=== PATIENT | female | born 1940 | race Caucasian/White ===

== ENCOUNTER → 2016-10-15 | Outpatient (CLI) | payer MEDICARE, MEDICAID | END | disposition home or self-care (01) | LOC: MAMMO 09:18 | PROVIDERS: ATTEND Family Medicine | DX: Z12.31 Encounter for screening mammogram for malignant neoplasm of breast (principal) | CPT/HCPCS: G0202 ==

== ENCOUNTER → 2017-10-18 | Outpatient (CLI) | payer MEDICARE, MEDICAID | END | disposition home or self-care (01) | LOC: MAMMO 09:28 | PROVIDERS: ATTEND Family Medicine | DX: Z12.31 Encounter for screening mammogram for malignant neoplasm of breast (principal) | CPT/HCPCS: 77067 ==

== ENCOUNTER → 2018-10-18 | Outpatient (CLI) | payer MEDICARE, MEDICAID | END | disposition home or self-care (01) | LOC: MAMMO 13:06 | PROVIDERS: ATTEND Family Medicine | DX: Z12.31 Encounter for screening mammogram for malignant neoplasm of breast (principal); M19.012 Primary osteoarthritis, left shoulder; M17.11 Unilateral primary osteoarthritis, right knee | CPT/HCPCS: 73030; 73560; 77067 ==

== ENCOUNTER → 2018-11-14 | Outpatient (CLI) | payer MEDICARE, MEDICAID | END | disposition home or self-care (01) | LOC: MAMMO 14:08 | PROVIDERS: ATTEND Family Medicine | DX: N63.11 Unspecified lump in the right breast, upper outer quadrant (principal); R92.1 Mammographic calcification found on diagnostic imaging of breast | CPT/HCPCS: 76642; 77066 ==

== ENCOUNTER 2020-11-03 01:54 | Inpatient (IN) | payer MEDICARE, MEDICAID ==
[~2020-11-03] VITALS: Ht 160 cm; Wt 71.2 kg
[2020-11-03] VITALS (12 sets, daily range): BP systolic 89–129; BP diastolic 38–59
[2020-11-03] MEDS ORDERED: ONDANSETRON HCL 4MG/2ML INJ IV STA (02:40)
[2020-11-03] MEDS ORDERED: MORPHINE SULFATE 4 MG/ML CPJ (NOT FOR IM USE) IV STA (02:40)
[2020-11-03] MEDS ORDERED: SODIUM CHLORIDE 0.9% 1,000 ML IV ONE (02:45)
[2020-11-03] MEDS ORDERED: LIDOCAINE HCL 1% 20ML VIAL (Pyxis) INJ INFIL ONE (02:45)
[2020-11-03] MEDS ORDERED: BACITRACIN ZINC OINT UDPKT TOP ONE (02:45)
[2020-11-03] MEDS ORDERED: TETANUS, DIPHTHERIA, PERTUSSIS VAC/PF 0.5ML (>7YR OLD) IM ONE (02:45)
[2020-11-03 03:08] LABS: CHLORIDE 100 mEq/L (98-107)
[2020-11-03 03:46] LABS: BASOPHILS % 0.5 % (0.0-2.0); EOSINOPHILS % 1.4 % (0.0-5.0); HEMATOCRIT. 31.5 % (36.0-48.0); HEMOGLOBIN. 10.8 g/dL (12.0-16.0); LYMPHOCYTES % 14.3 % (20.0-50.0); MEAN CORPUSCULAR VOLUME 84.8 fL (81.0-99.0); MEAN PLATELET VOLUME 7.5 fl (7.4-10.4); MONOCYTES % 6.8 % (2.0-8.0); PLATELET 402 x1000/uL (130-400); RED BLOOD CELL COUNT 3.72 mill/uL (4.2-5.4)
[2020-11-03 03:47] LABS: CLARITY URINE CLEAR (CLEAR); COLOR URINE YELLOW (YELLOW); KETONES URINE NEGATIVE (NEGATIVE); LEUKOCYTE ESTERASE URINE NEGATIVE (NEGATIVE); NITRITE URINE NEGATIVE (NEGATIVE); OCCULT BLOOD URINE NEGATIVE (NEGATIVE); PROTEIN URINE NEGATIVE (NEGATIVE); SPECIFIC GRAVITY URINE 1.007 (1.005-1.030); UROBILINOGEN URINE 0.2 E.U./dL (0.2-1.0)
[2020-11-03] MEDS ORDERED: IPRATROPIUM/ALBUTEROL 0.5-3(2.5)MG/3ML NEB HHN PRN (06:15)
[2020-11-03] MEDS ORDERED: ONDANSETRON HCL 4MG/2ML INJ IV PRN (06:15)
[2020-11-03] MEDS ORDERED: LORAZEPAM 2MG/ML CPJ IV PRN (06:15)
[2020-11-03] MEDS ORDERED: GUAIFENESIN 200MG/10ML SUGAR FREE UDC PO PRN (06:15)
[2020-11-03] MEDS ORDERED: MAGNESIUM/ALUMINUM HYDROXIDE/SIMETHICONE 30ML UDC PO PRN (06:15)
[2020-11-03] MEDS ORDERED: HYDRALAZINE 20MG/ML VIAL IV PRN (06:15)
[2020-11-03] MEDS ORDERED: MORPHINE SULFATE 2 MG/ML CPJ (NOT FOR IM USE) IV PRN (06:15)
[2020-11-03] MEDS ORDERED: ACETAMINOPHEN 325MG TABLET PO PRN (06:15)
[2020-11-03] MEDS ORDERED: DOCUSATE SODIUM 100MG CAPSULE PO PRN (06:15)
[2020-11-03] MEDS ORDERED: DIPHENHYDRAMINE 50MG/ML VIAL IV PRN (06:15)
[2020-11-03] MEDS ORDERED: HYDROCODONE/ACETAMINOPHEN 5/325MG TABLET PO PRN (06:15)
[2020-11-03] MEDS ORDERED: NALOXONE HCL 0.4MG/ML VIAL IV PRN (06:30)
[2020-11-03 11:31] LABS: T4 FREE 1.29 ng/dL (0.76-1.46)
[2020-11-03 13:27] LABS: PROTHROMBIN TIME 10.8 sec (9.6-11.0)
[2020-11-03] MEDS ORDERED: SODIUM CHLORIDE 0.9% INJ 3ML FLUSH IVF SCH (14:00)
[2020-11-03] MEDS ORDERED: BACITRACIN 50,000 UNITS/VIAL ONE (16:45)
[2020-11-03] MEDS ORDERED: THROMBIN (BOVINE) 5000 UNITS/VIAL TOP ONE ×3 (16:45→21:09)
[2020-11-03] MEDS ORDERED: SODIUM CHLORIDE 0.9% 500 ML IV ONE (16:45)
[2020-11-03] MEDS ORDERED: LIDOCAINE HCL/EPINEPHRINE 1%-EPI 1:100,000 10 ML VIAL ONE ×2 (16:46→17:07)
[2020-11-03] MEDS ORDERED: POTASSIUM CHLORIDE INJ 40 MEQ in DEXT 5% WATER 250 ML IV NR (17:30)
[2020-11-03] MEDS ORDERED: ROCURONIUM BROMIDE 10MG/ML VIAL 5ML IV ONE (18:13)
[2020-11-03] MEDS ORDERED: DEXAMETHASONE 4MG/ML 1ML VIAL ONE (18:15)
[2020-11-03] MEDS ORDERED: CALCIUM CHLORIDE 1GM/10ML SYR IV ONE (18:26)
[2020-11-03] MEDS ORDERED: ALBUMIN HUMAN 25GM/100ML (25%) IV ONE ×2 (18:39→19:16)
[2020-11-03] MEDS ORDERED: KCL 20MEQ/100ML PREMIX 200 ML IV ONE (18:41)
[2020-11-03] MEDS ORDERED: HYDROMORPHONE HCL/PF 2MG/ML (OR) ONE (18:53)
[2020-11-03] MEDS ORDERED: LABETALOL HCL 5MG/ML VIAL 20ML IV ONE (19:10)
[2020-11-03] MEDS ORDERED: HYDRALAZINE 20MG/ML VIAL ONE (19:10)
[2020-11-03] MEDS ORDERED: CEFAZOLIN SODIUM 1000MG/VIAL ONE (19:47)
[2020-11-03] MEDS ORDERED: VASOPRESSIN 20 UNIT/ML 1ML ONE (21:26)
[2020-11-03] MEDS ORDERED: CEFAZOLIN SODIUM 1000MG/VIAL IV SCH (22:00)
[2020-11-03] MEDS ORDERED: NOREPINEPHRINE 8MG/250ML PMX 250 ML IV PRN (22:15)
[2020-11-03] MEDS ORDERED: NOREPINEPHRINE 8 MG in DEXTROSE 5% WATER 250 ML IV PRN (22:15)
[2020-11-03] MEDS: DEXT 5%/LACTATED RINGERS 1,000 ML IV SCH (22:55)
[2020-11-04] VITALS (99 sets, daily range): BP systolic 1–170; BP diastolic -1–74
[2020-11-04] MEDS ORDERED: PROPOFOL 10MG/ML 100ML 100 ML IV PRN
[2020-11-04] MEDS: DEXAMETHASONE 4MG/ML 1ML VIAL IV SCH ×5 (00:05→17:07)
[2020-11-04 00:29] LABS: BG BASE EXCESS -3.3 mmol/L (-2.0-2.0); BG CARBOXYHEMOGLOBIN 0.2 % (0.5-1.5); BG FRACTION INSPIRED OXYGEN 50; BG HCO3 ACT 20.2 mmol/L (22.0-26.0); BG METHEMOGLOBIN 0.4 % (0.0-1.5); BG OXYHEMOGLOBIN 97.4 % (94.0-97.0); BG PCO2 29.8 mmHg (35.0-45.0); BG PO2 109.2 mmHg (75.0-100.0); BG SAMPLE SITE ALINE; BG TOTAL HEMOGLOBIN 6.7 g/dL (12.0-18.0); BG TOTAL RESPIRATORY RATE 14 b/min; BG VENT MODE VENT - AC
[2020-11-04] MEDS: DEXT 5%/LACTATED RINGERS 1,000 ML IV SCH ×3 (01:00→17:07)
[2020-11-04 01:01] LABS: CREATINE KINASE MB FRACTION 2.8 ng/mL (0.5-3.6)
[2020-11-04] MEDS: CEFAZOLIN 1000MG PREMIX 50 ML IV SCH ×4 (01:36→23:47)
[2020-11-04] MEDS: NICARDIPINE 100 MG in SODIUM CHLORIDE 0.9% 60 ML IV PRN ×2 (01:37→09:22)
[2020-11-04 06:06] LABS: HEMATOCRIT. 21.2 % (36.0-48.0); HEMOGLOBIN. 7.1 g/dL (12.0-16.0); MEAN CORPUSCULAR HEMOGLOBIN 28.5 pg (28.0-32.0); MEAN CORPUSCULAR VOLUME 84.7 fL (81.0-99.0); MEAN PLATELET VOLUME 7.4 fl (7.4-10.4); PLATELET 295 x1000/uL (130-400); RED CELL DISTRIBUTION WIDTH 14.9 % (11.6-14.6)
[2020-11-04 06:09] LABS: CHLORIDE 100 mEq/L (98-107)
[2020-11-04 07:56] LABS: BG BASE EXCESS -1.6 mmol/L (-2.0-2.0); BG CARBOXYHEMOGLOBIN 0.2 % (0.5-1.5); BG DEOXYHEMOGLOBIN 4.7 % (0.0-5.0); BG METHEMOGLOBIN 0.6 % (0.0-1.5); BG OXYGEN SATURATION 95.3 % (92.0-98.5); BG OXYHEMOGLOBIN 94.5 % (94.0-97.0); BG PCO2 37.7 mmHg (35.0-45.0); BG PH 7.403 (7.350-7.450); BG PO2 76.5 mmHg (75.0-100.0); BG SAMPLE SITE ALINE; BG TOTAL HEMOGLOBIN 6.9 g/dL (12.0-18.0); BG VENT MODE VENT - AC
[2020-11-04] MEDS: PANTOPRAZOLE SODIUM 40 MG/VIAL IV SCH (09:57)
[2020-11-04 11:41] LABS: PLATELET ESTIMATE NORMAL
[2020-11-04] MEDS ORDERED: SODIUM BICARBONATE 4% (2.4MEQ) 5ML VIAL IV ONE (13:24)
[2020-11-04] MEDS: MORPHINE SULFATE 4 MG/ML CPJ (NOT FOR IM USE) IV PRN (22:05)
[2020-11-04] MEDS ORDERED: IOHEXOL-350 100 ML BOTTLE ONE (23:03)
[2020-11-04 23:55] LABS: HEMATOCRIT 27.7 % (36.0-48.0); HEMOGLOBIN 9.4 g/dL (12.0-16.0); MEAN CORPUSCULAR HEMOGLOBIN 29.4 pg (28.0-32.0); MEAN CORPUSCULAR VOLUME 86.5 fL (81.0-99.0); PLATELET 254 x1000/uL (130-400); RED CELL DISTRIBUTION WIDTH 15.3 % (11.6-14.6)
[2020-11-05] VITALS (96 sets, daily range): BP systolic 75–142; BP diastolic 49–91
[2020-11-05] MEDS: DEXAMETHASONE 4MG/ML 1ML VIAL IV SCH ×4 (01:29→17:00)
[2020-11-05] MEDS: DEXT 5%/LACTATED RINGERS 1,000 ML IV SCH ×3 (01:31→17:04)
[2020-11-05] MEDS: NICARDIPINE 100 MG in SODIUM CHLORIDE 0.9% 60 ML IV PRN (04:19)
[2020-11-05] MEDS: MORPHINE SULFATE 4 MG/ML CPJ (NOT FOR IM USE) IV PRN ×4 (04:42→20:28)
[2020-11-05] MEDS: CEFAZOLIN 1000MG PREMIX 50 ML IV SCH ×2 (06:00→14:29)
[2020-11-05] MEDS: PANTOPRAZOLE SODIUM 40 MG/VIAL IV SCH (08:19)
[2020-11-05 09:26] LABS: BG BASE EXCESS 1.2 mmol/L (-2.0-2.0); BG CARBOXYHEMOGLOBIN 0.3 % (0.5-1.5); BG DEOXYHEMOGLOBIN 2.1 % (0.0-5.0); BG FRACTION INSPIRED OXYGEN 50; BG HCO3 ACT 25.2 mmol/L (22.0-26.0); BG METHEMOGLOBIN 0.5 % (0.0-1.5); BG OXYGEN SATURATION 97.9 % (92.0-98.5); BG OXYHEMOGLOBIN 97.1 % (94.0-97.0); BG PCO2 37.5 mmHg (35.0-45.0); BG PH 7.445 (7.350-7.450); BG PO2 103.7 mmHg (75.0-100.0); BG SAMPLE SITE RIGHT RADIAL; BG TOTAL HEMOGLOBIN 10.4 g/dL (12.0-18.0); BG VENT MODE VENT - AC
[2020-11-05 10:42] LABS: BG BASE EXCESS 0.4 mmol/L (-2.0-2.0); BG DEOXYHEMOGLOBIN 1.4 % (0.0-5.0); BG FRACTION INSPIRED OXYGEN 50; BG METHEMOGLOBIN 0.5 % (0.0-1.5); BG OXYGEN SATURATION 98.6 % (92.0-98.5); BG OXYHEMOGLOBIN 98.1 % (94.0-97.0); BG PCO2 35.1 mmHg (35.0-45.0); BG PH 7.453 (7.350-7.450); BG PO2 133.3 mmHg (75.0-100.0); BG SAMPLE SITE RIGHT RADIAL; BG TOTAL HEMOGLOBIN 11.4 g/dL (12.0-18.0); BG VENT MODE VENT - CPAP
[2020-11-05] MEDS: PIPERACILLIN/TAZOBACTAM 3.375 G in DEXTROSE 5% WATER 50 ML IV SCH ×2 (11:09→18:36)
[2020-11-05] MEDS ORDERED: DEXTROSE 50% WATER 50ML SYRINGE IV PRN (12:00)
[2020-11-05] MEDS: BLOOD SUGAR DIAGNOSTIC STRIP TEST SCH ×2 (12:15→18:33)
[2020-11-05] MEDS: INSULIN LISPRO 100 UNITS/ML SUBCUT SCH ×2 (13:37→17:03)
[2020-11-06] VITALS (30 sets, daily range): BP systolic 109–154; BP diastolic 54–80
[2020-11-06] MEDS: BLOOD SUGAR DIAGNOSTIC STRIP TEST SCH ×4 (00:08→17:12)
[2020-11-06] MEDS: PIPERACILLIN/TAZOBACTAM 3.375 G in DEXTROSE 5% WATER 50 ML IV SCH ×4 (00:35→17:25)
[2020-11-06] MEDS: DEXT 5%/LACTATED RINGERS 1,000 ML IV SCH ×3 (01:54→16:06)
[2020-11-06] MEDS: INSULIN LISPRO 100 UNITS/ML SUBCUT SCH ×4 (05:58→17:29)
[2020-11-06] MEDS: PANTOPRAZOLE SODIUM 40 MG/VIAL IV SCH (08:11)
[2020-11-06] MEDS: MORPHINE SULFATE 4 MG/ML CPJ (NOT FOR IM USE) IV PRN ×3 (08:12→16:19)
[2020-11-07] VITALS (7 sets, daily range): BP systolic 122–168; BP diastolic 68–83
[2020-11-07] MEDS: PIPERACILLIN/TAZOBACTAM 3.375 G in DEXTROSE 5% WATER 50 ML IV SCH ×5 (00:34→23:34)
[2020-11-07] MEDS: DEXT 5%/LACTATED RINGERS 1,000 ML IV SCH ×4 (00:35→17:00)
[2020-11-07] MEDS: INSULIN LISPRO 100 UNITS/ML SUBCUT SCH ×5 (01:06→23:21)
[2020-11-07] MEDS: BLOOD SUGAR DIAGNOSTIC STRIP TEST SCH ×5 (06:34→23:20)
[2020-11-07] MEDS: PANTOPRAZOLE SODIUM 40 MG/VIAL IV SCH (10:11)
[2020-11-07] MEDS: MORPHINE SULFATE 4 MG/ML CPJ (NOT FOR IM USE) IV PRN ×2 (11:31→19:55)
[2020-11-07] MEDS: CLONIDINE 0.1MG TABLET PO PRN (20:03)
[2020-11-08] VITALS (7 sets, daily range): BP systolic 114–149; BP diastolic 53–75
[2020-11-08] MEDS: DEXT 5%/LACTATED RINGERS 1,000 ML IV SCH ×3 (00:35→17:39)
[2020-11-08] MEDS: PIPERACILLIN/TAZOBACTAM 3.375 G in DEXTROSE 5% WATER 50 ML IV SCH ×4 (05:09→23:28)
[2020-11-08] MEDS: MORPHINE SULFATE 4 MG/ML CPJ (NOT FOR IM USE) IV PRN ×3 (05:09→20:59)
[2020-11-08] MEDS: INSULIN LISPRO 100 UNITS/ML SUBCUT SCH ×3 (05:40→17:38)
[2020-11-08] MEDS: BLOOD SUGAR DIAGNOSTIC STRIP TEST SCH ×3 (05:40→17:39)
[2020-11-08 09:51] LABS: BASOPHILS % 0.2 % (0.0-2.0); EOSINOPHILS % 1.3 % (0.0-5.0); HEMATOCRIT. 31.1 % (36.0-48.0); HEMOGLOBIN. 10.3 g/dL (12.0-16.0); LYMPHOCYTES % 8.5 % (20.0-50.0); MEAN CORPUSCULAR HEMOGLOBIN 29.2 pg (28.0-32.0); MEAN CORPUSCULAR VOLUME 87.9 fL (81.0-99.0); MEAN PLATELET VOLUME 7.1 fl (7.4-10.4); MONOCYTES % 6.3 % (2.0-8.0); NEUTROPHILS % 83.7 % (40.0-76.0); PLATELET 239 x1000/uL (130-400); RED BLOOD CELL COUNT 3.54 mill/uL (4.2-5.4); RED CELL DISTRIBUTION WIDTH 15.7 % (11.6-14.6)
[2020-11-08 09:58] LABS: CHLORIDE 111 mEq/L (98-107)
[2020-11-08] MEDS: PANTOPRAZOLE SODIUM 40 MG/VIAL IV SCH (10:59)
[2020-11-08] MEDS ORDERED: POTASSIUM CHLORIDE INJ 40 MEQ in DEXT 5% WATER 250 ML IV SCH (13:00)
[2020-11-08] MEDS: CLONIDINE 0.1MG TABLET PO PRN (20:10)
[2020-11-09] VITALS (10 sets, daily range): BP systolic 116–197; BP diastolic 44–97
[2020-11-09] MEDS: DEXT 5%/LACTATED RINGERS 1,000 ML IV SCH ×3 (00:26→17:23)
[2020-11-09] MEDS: BLOOD SUGAR DIAGNOSTIC STRIP TEST SCH ×5 (00:26→23:29)
[2020-11-09] MEDS: INSULIN LISPRO 100 UNITS/ML SUBCUT SCH ×5 (05:22→23:29)
[2020-11-09] MEDS: PIPERACILLIN/TAZOBACTAM 3.375 G in DEXTROSE 5% WATER 50 ML IV SCH ×4 (05:23→23:25)
[2020-11-09] MEDS: MORPHINE SULFATE 4 MG/ML CPJ (NOT FOR IM USE) IV PRN ×5 (05:52→22:38)
[2020-11-09 06:49] LABS: BASOPHILS % 0.1 % (0.0-2.0); EOSINOPHILS % 3.6 % (0.0-5.0); HEMOGLOBIN. 10.6 g/dL (12.0-16.0); LYMPHOCYTES % 9.3 % (20.0-50.0); MEAN CORPUSCULAR VOLUME 87.7 fL (81.0-99.0); MONOCYTES % 5.7 % (2.0-8.0); NEUTROPHILS % 81.3 % (40.0-76.0); PLATELET 207 x1000/uL (130-400); RED BLOOD CELL COUNT 3.65 mill/uL (4.2-5.4); RED CELL DISTRIBUTION WIDTH 15.4 % (11.6-14.6)
[2020-11-09 06:51] LABS: CHLORIDE 109 mEq/L (98-107)
[2020-11-09] MEDS: FAMOTIDINE 20MG/2ML VIAL IV SCH (09:42)
[2020-11-09] MEDS: CLONIDINE 0.1MG TABLET PO PRN (15:18)
[2020-11-10] VITALS: BP 107/54
[2020-11-10] MEDS: DEXT 5%/LACTATED RINGERS 1,000 ML IV SCH ×2 (00:45→09:00)
[2020-11-10] MEDS: CLONIDINE 0.1MG TABLET PO PRN (01:16)
[2020-11-10 04:00] VITALS: BP 125/70
[2020-11-10] MEDS: MORPHINE SULFATE 4 MG/ML CPJ (NOT FOR IM USE) IV PRN ×2 (05:24→14:20)
[2020-11-10] MEDS: INSULIN LISPRO 100 UNITS/ML SUBCUT SCH ×2 (06:00→12:00)
[2020-11-10] MEDS: BLOOD SUGAR DIAGNOSTIC STRIP TEST SCH ×2 (06:14→12:00)
[2020-11-10] MEDS: PIPERACILLIN/TAZOBACTAM 3.375 G in DEXTROSE 5% WATER 50 ML IV SCH (06:15)
[2020-11-10] MEDS: FAMOTIDINE 20MG/2ML VIAL IV SCH (09:00)
[2020-11-10] MEDS ORDERED: METOPROLOL TARTRATE 25MG TABLET PO SCH (10:30)
[2020-11-10 18:26] VITALS: BP 147/87
== END 2020-11-10 18:16 | DRG 453 ==
LOC: ER 01:54 → EDBEDREQ 04:29 → EDBEDREQTM 04:29 → ENRESERV 12:14 → 6WST 13:18 → MICUSO 22:00 → 5EST 11-06 06:53
PROVIDERS: ADMIT Internal Medicine; ATTEND Internal Medicine
PROC: 0RG2071 Fusion of 2 or more Cervical Vertebral Joints with Autologous Tissue Substitute, Posterior Approach, Posterior Column, Open Approach (ICD-10-PCS; principal; 2020-11-03)
PROC: 5A1945Z Respiratory Ventilation, 24-96 Consecutive Hours (ICD-10-PCS; 2020-11-03)
PROC: 00NW0ZZ Release Cervical Spinal Cord, Open Approach (ICD-10-PCS; 2020-11-03)
PROC: 0RB30ZZ Excision of Cervical Vertebral Disc, Open Approach (ICD-10-PCS; 2020-11-03)
PROC: 4A11X4G Monitoring of Peripheral Nervous Electrical Activity, Intraoperative, External Approach (ICD-10-PCS; 2020-11-03)
PROC: 0HQ1XZZ Repair Face Skin, External Approach (ICD-10-PCS; 2020-11-03)
PROC: 0RG10A0 Fusion of Cervical Vertebral Joint with Interbody Fusion Device, Anterior Approach, Anterior Column, Open Approach (ICD-10-PCS; 2020-11-03)
PROC: 0W9B3ZZ Drainage of Left Pleural Cavity, Percutaneous Approach (ICD-10-PCS; 2020-11-04)
PROC: 30233N1 Transfusion of Nonautologous Red Blood Cells into Peripheral Vein, Percutaneous Approach (ICD-10-PCS; 2020-11-04)
DX: S12.400A Unspecified displaced fracture of fifth cervical vertebra, initial encounter for closed fracture (principal); G82.50 Quadriplegia, unspecified; G95.20 Unspecified cord compression; G95.89 Other specified diseases of spinal cord; J91.0 Malignant pleural effusion; E46 Unspecified protein-calorie malnutrition; E87.1 Hypo-osmolality and hyponatremia; C16.9 Malignant neoplasm of stomach, unspecified; C34.90 Malignant neoplasm of unspecified part of unspecified bronchus or lung; C78.00 Secondary malignant neoplasm of unspecified lung; C79.51 Secondary malignant neoplasm of bone; M48.02 Spinal stenosis, cervical region; S12.500A Unspecified displaced fracture of sixth cervical vertebra, initial encounter for closed fracture; S12.600A Unspecified displaced fracture of seventh cervical vertebra, initial encounter for closed fracture; F07.81 Postconcussional syndrome; I10 Essential (primary) hypertension; E87.6 Hypokalemia; E78.5 Hyperlipidemia, unspecified; D64.9 Anemia, unspecified; S01.81XA Laceration without foreign body of other part of head, initial encounter; D32.9 Benign neoplasm of meninges, unspecified; Z20.822 Contact with and (suspected) exposure to COVID-19; S14.109A Unspecified injury at unspecified level of cervical spinal cord, initial encounter; W06.XXXA Fall from bed, initial encounter; R93.89 Abnormal findings on diagnostic imaging of other specified body structures; Z82.49 Family history of ischemic heart disease and other diseases of the circulatory system; Z86.73 Personal history of transient ischemic attack (TIA), and cerebral infarction without residual deficits; Z68.27 Body mass index [BMI] 27.0-27.9, adult; Y93.89 Activity, other specified; Y99.8 Other external cause status; Z85.028 Personal history of other malignant neoplasm of stomach; Z95.828 Presence of other vascular implants and grafts; Y92.003 Bedroom of unspecified non-institutional (private) residence as the place of occurrence of the external cause
CPT/HCPCS: 32555; 36415; 36600; 70486; 71045; 71275; 72040; 72141; 72146; 72148; 72170; 76000; 80048; 80053; 80061; 81003; 82040; 82375; 82550; 82553; 82805; 82962; 83036; 83615; 83880; 84439; 84443; 84478; 84484; 85025; 85027; 85379; 86850; 86900; 86920; 87070; 87077; 87186; 87426; 88108; 88305; 88311; 88312; 90715; 92610; 93005; 93306; 93970; 94003; 95863; 95925; 95926; 95928; 95929; 97110; 97162; 97166; 97530; 99291; C1713; C9113; J0360; J0690; J1100; J1170; J1815; J2270; J2405; J2543; J3480; J3490; J7030; J7040; J7050; J7060; J7121; L0172; P9016; P9047; Q9967; C1762

== ENCOUNTER 2020-11-10 18:17 | Inpatient (IN) | payer MEDICARE, MEDICAID ==
[~2020-11-10] VITALS: Ht 160 cm; Wt 77.6 kg
[2020-11-10 18:54] VITALS: BP 157/69
[2020-11-10 19:00] VITALS: BP 157/69
[2020-11-10] MEDS ORDERED: HYDROCODONE/ACETAMINOPHEN 10/325MG TABLET PO PRN (19:00)
[2020-11-10] MEDS ORDERED: MAGNESIUM/ALUMINUM HYDROXIDE/SIMETHICONE 30ML UDC PO PRN (19:45)
[2020-11-10] MEDS ORDERED: DEXTROSE 50% WATER 50ML SYRINGE IV PRN (19:45)
[2020-11-10] MEDS ORDERED: GUAIFENESIN 200MG/10ML SUGAR FREE UDC PO PRN (19:45)
[2020-11-10] MEDS ORDERED: ONDANSETRON HCL 4MG/2ML INJ IV PRN (19:45)
[2020-11-10] MEDS ORDERED: HYDRALAZINE HCL 10MG TABLET PO PRN (20:44)
[2020-11-10] MEDS ORDERED: DIPHENHYDRAMINE 50MG/ML VIAL IV PRN (20:44)
[2020-11-10] MEDS ORDERED: NALOXONE HCL 0.4 MG/ML 1ML VIAL IV PRN (20:52)
[2020-11-10] MEDS: BLOOD SUGAR DIAGNOSTIC STRIP TEST SCH (21:00)
[2020-11-10] MEDS: INSULIN LISPRO 100 UNITS/ML SUBCUT SCH (21:00)
[2020-11-10] MEDS: METOPROLOL TARTRATE 25MG TABLET PO SCH (21:02)
[2020-11-10] MEDS: HYDROCODONE/ACETAMINOPHEN 5/325MG TABLET PO PRN (21:03)
[2020-11-10] MEDS: DEXT 5%/LACTATED RINGERS 1,000 ML IV SCH (23:46)
[2020-11-11] MEDS: HYDROCODONE/ACETAMINOPHEN 5/325MG TABLET PO PRN ×3 (03:18→21:15)
[2020-11-11] MEDS: CLONIDINE 0.1MG TABLET PO PRN (03:20)
[2020-11-11] MEDS: DEXT 5%/LACTATED RINGERS 1,000 ML IV SCH ×2 (06:25→21:16)
[2020-11-11] MEDS: BLOOD SUGAR DIAGNOSTIC STRIP TEST SCH ×4 (07:12→21:01)
[2020-11-11] MEDS: IPRATROPIUM/ALBUTEROL 0.5-3(2.5)MG/3ML NEB HHN PRN (07:20)
[2020-11-11 08:00] VITALS: BP 184/77
[2020-11-11] MEDS: FAMOTIDINE 20MG/2ML VIAL IV SCH (08:20)
[2020-11-11] MEDS: DOCUSATE SODIUM 100MG CAPSULE PO SCH ×2 (08:20→17:02)
[2020-11-11] MEDS: METOPROLOL TARTRATE 25MG TABLET PO SCH ×2 (08:21→21:14)
[2020-11-11] MEDS: INSULIN LISPRO 100 UNITS/ML SUBCUT SCH ×4 (08:53→21:00)
[2020-11-11 10:19] LABS: HEMATOCRIT. 31.8 % (36.0-48.0); HEMOGLOBIN. 10.3 g/dL (12.0-16.0); MEAN CORPUSCULAR HEMOGLOBIN 28.6 pg (28.0-32.0); MEAN PLATELET VOLUME 7.4 fl (7.4-10.4); PLATELET 258 x1000/uL (130-400); RED BLOOD CELL COUNT 3.62 mill/uL (4.2-5.4); RED CELL DISTRIBUTION WIDTH 15.8 % (11.6-14.6)
[2020-11-11 10:35] LABS: CHLORIDE 108 mEq/L (98-107)
[2020-11-11 20:00] VITALS: BP 157/67
[2020-11-11 21:27] LABS: PLATELET ESTIMATE NORMAL
[2020-11-12] MEDS: DEXT 5%/LACTATED RINGERS 1,000 ML IV SCH (05:21)
[2020-11-12] MEDS: BLOOD SUGAR DIAGNOSTIC STRIP TEST SCH ×4 (05:30→21:03)
[2020-11-12] MEDS: INSULIN LISPRO 100 UNITS/ML SUBCUT SCH ×4 (07:54→21:00)
[2020-11-12 08:22] VITALS: BP 165/73
[2020-11-12] MEDS: FAMOTIDINE 20MG/2ML VIAL IV SCH (08:36)
[2020-11-12] MEDS: METOPROLOL TARTRATE 25MG TABLET PO SCH ×2 (08:36→21:09)
[2020-11-12] MEDS: HYDROCODONE/ACETAMINOPHEN 5/325MG TABLET PO PRN ×2 (08:37→13:11)
[2020-11-12] MEDS: DOCUSATE SODIUM 100MG CAPSULE PO SCH ×2 (08:37→17:12)
[2020-11-12 20:00] VITALS: BP 139/69
[2020-11-13] MEDS: HYDROCODONE/ACETAMINOPHEN 5/325MG TABLET PO PRN ×2 (00:22→08:06)
[2020-11-13] MEDS: BLOOD SUGAR DIAGNOSTIC STRIP TEST SCH ×4 (05:41→21:00)
[2020-11-13] MEDS: INSULIN LISPRO 100 UNITS/ML SUBCUT SCH ×4 (07:21→21:00)
[2020-11-13 07:39] LABS: BASOPHILS % 0.3 % (0.0-2.0); HEMATOCRIT. 28.4 % (36.0-48.0); HEMOGLOBIN. 9.8 g/dL (12.0-16.0); LYMPHOCYTES % 11.2 % (20.0-50.0); MEAN CORPUSCULAR HEMOGLOBIN 30.3 pg (28.0-32.0); MEAN CORPUSCULAR VOLUME 87.5 fL (81.0-99.0); MEAN PLATELET VOLUME 7.2 fl (7.4-10.4); MONOCYTES % 7.1 % (2.0-8.0); NEUTROPHILS % 79.4 % (40.0-76.0); PLATELET 283 x1000/uL (130-400); RED BLOOD CELL COUNT 3.25 mill/uL (4.2-5.4); RED CELL DISTRIBUTION WIDTH 15.5 % (11.6-14.6)
[2020-11-13 07:49] VITALS: BP 158/70
[2020-11-13] MEDS: DOCUSATE SODIUM 100MG CAPSULE PO SCH ×2 (08:06→17:37)
[2020-11-13] MEDS: METOPROLOL TARTRATE 25MG TABLET PO SCH ×2 (08:06→20:20)
[2020-11-13] MEDS: FAMOTIDINE 20MG/2ML VIAL IV SCH (08:06)
[2020-11-13 08:18] LABS: CHLORIDE 107 mEq/L (98-107)
[2020-11-13] MEDS ORDERED: POTASSIUM CHLORIDE 20MEQ TABLET SR PO NR (10:30)
[2020-11-13 20:00] VITALS: BP 158/74
[2020-11-14] MEDS: HYDROCODONE/ACETAMINOPHEN 5/325MG TABLET PO PRN (02:18)
[2020-11-14] MEDS: BLOOD SUGAR DIAGNOSTIC STRIP TEST SCH ×4 (06:30→20:43)
[2020-11-14] MEDS: INSULIN LISPRO 100 UNITS/ML SUBCUT SCH ×4 (07:38→20:43)
[2020-11-14 07:42] VITALS: BP 133/84
[2020-11-14] MEDS: METOPROLOL TARTRATE 25MG TABLET PO SCH ×2 (08:20→20:42)
[2020-11-14] MEDS: FAMOTIDINE 20MG/2ML VIAL IV SCH (08:21)
[2020-11-14] MEDS: DOCUSATE SODIUM 100MG CAPSULE PO SCH ×2 (08:21→16:59)
[2020-11-14 20:00] VITALS: BP 179/81
[2020-11-14] MEDS: CLONIDINE 0.1MG TABLET PO PRN (20:42)
[2020-11-14] MEDS: ENOXAPARIN 80MG/0.8ML SYR SUBCUT SCH (20:44)
[2020-11-14 22:05] VITALS: BP 108/55
[2020-11-15] MEDS: IPRATROPIUM/ALBUTEROL 0.5-3(2.5)MG/3ML NEB HHN PRN (00:37)
[2020-11-15] MEDS: BLOOD SUGAR DIAGNOSTIC STRIP TEST SCH ×4 (06:13→21:00)
[2020-11-15] MEDS: INSULIN LISPRO 100 UNITS/ML SUBCUT SCH ×4 (06:13→21:00)
[2020-11-15 06:57] LABS: BASOPHILS % 0.4 % (0.0-2.0); EOSINOPHILS % 1.1 % (0.0-5.0); HEMATOCRIT. 28.6 % (36.0-48.0); HEMOGLOBIN. 9.7 g/dL (12.0-16.0); LYMPHOCYTES % 9.1 % (20.0-50.0); MEAN CORPUSCULAR HEMOGLOBIN 29.7 pg (28.0-32.0); MEAN CORPUSCULAR VOLUME 88.1 fL (81.0-99.0); MEAN PLATELET VOLUME 7.4 fl (7.4-10.4); MONOCYTES % 6.7 % (2.0-8.0); NEUTROPHILS % 82.7 % (40.0-76.0); PLATELET 305 x1000/uL (130-400); RED BLOOD CELL COUNT 3.25 mill/uL (4.2-5.4); RED CELL DISTRIBUTION WIDTH 15.5 % (11.6-14.6)
[2020-11-15 07:04] LABS: CHLORIDE 106 mEq/L (98-107)
[2020-11-15 07:14] LABS: PROTHROMBIN TIME 11.1 sec (9.6-11.0)
[2020-11-15] MEDS: HYDROCODONE/ACETAMINOPHEN 5/325MG TABLET PO PRN (08:17)
[2020-11-15 08:26] VITALS: BP 164/69
[2020-11-15] MEDS: METOPROLOL TARTRATE 25MG TABLET PO SCH ×2 (08:35→21:19)
[2020-11-15] MEDS: DOCUSATE SODIUM 100MG CAPSULE PO SCH ×2 (08:36→16:23)
[2020-11-15] MEDS: ENOXAPARIN 80MG/0.8ML SYR SUBCUT SCH ×2 (08:38→21:19)
[2020-11-15] MEDS: FAMOTIDINE 20MG/2ML VIAL IV SCH (09:52)
[2020-11-15 20:00] VITALS: BP 151/74
[2020-11-15] MEDS: CLONIDINE 0.1MG TABLET PO PRN (21:19)
[2020-11-16] VITALS: BP 128/61
[2020-11-16 05:55] VITALS: BP 137/61
[2020-11-16] MEDS: INSULIN LISPRO 100 UNITS/ML SUBCUT SCH ×4 (05:57→21:00)
[2020-11-16] MEDS: BLOOD SUGAR DIAGNOSTIC STRIP TEST SCH ×4 (05:57→21:14)
[2020-11-16 06:49] LABS: BASOPHILS % 0.6 % (0.0-2.0); EOSINOPHILS % 1.2 % (0.0-5.0); HEMATOCRIT. 29.5 % (36.0-48.0); HEMOGLOBIN. 9.8 g/dL (12.0-16.0); LYMPHOCYTES % 8.1 % (20.0-50.0); MEAN CORPUSCULAR HEMOGLOBIN 29.4 pg (28.0-32.0); MEAN CORPUSCULAR VOLUME 88.5 fL (81.0-99.0); MEAN PLATELET VOLUME 7.4 fl (7.4-10.4); MONOCYTES % 6.7 % (2.0-8.0); NEUTROPHILS % 83.4 % (40.0-76.0); PLATELET 330 x1000/uL (130-400); RED BLOOD CELL COUNT 3.33 mill/uL (4.2-5.4); RED CELL DISTRIBUTION WIDTH 15.5 % (11.6-14.6)
[2020-11-16 06:51] LABS: CHLORIDE 104 mEq/L (98-107)
[2020-11-16 08:00] VITALS: BP 133/67
[2020-11-16] MEDS: METOPROLOL TARTRATE 25MG TABLET PO SCH ×2 (08:48→21:17)
[2020-11-16] MEDS: DOCUSATE SODIUM 100MG CAPSULE PO SCH ×2 (08:48→16:29)
[2020-11-16] MEDS: FAMOTIDINE 20MG/2ML VIAL IV SCH (08:50)
[2020-11-16] MEDS: ENOXAPARIN 80MG/0.8ML SYR SUBCUT SCH ×2 (09:00→21:16)
[2020-11-16] MEDS: POLYVINYL ALCOHOL OPHTH DROPS 15ML BOTHEYE PRN (09:04)
[2020-11-16 19:17] LABS: CLARITY URINE CLOUDY (CLEAR); COLOR URINE YELLOW (YELLOW); KETONES URINE 1+ (NEGATIVE); LEUKOCYTE ESTERASE URINE 2+ (NEGATIVE); NITRITE URINE POSITIVE (NEGATIVE); OCCULT BLOOD URINE 2+ (NEGATIVE); PH URINE 5.5 (4.5-8.0); PROTEIN URINE NEGATIVE (NEGATIVE); SPECIFIC GRAVITY URINE 1.016 (1.005-1.030); UROBILINOGEN URINE 0.2 E.U./dL (0.2-1.0)
[2020-11-16 20:00] VITALS: BP 154/67
[2020-11-17] MEDS: IPRATROPIUM/ALBUTEROL 0.5-3(2.5)MG/3ML NEB HHN PRN ×2 (00:09→05:44)
[2020-11-17] MEDS: BLOOD SUGAR DIAGNOSTIC STRIP TEST SCH ×4 (06:00→21:24)
[2020-11-17 06:41] LABS: HEMATOCRIT. 29.8 % (36.0-48.0); HEMOGLOBIN. 9.9 g/dL (12.0-16.0); MEAN CORPUSCULAR VOLUME 87.6 fL (81.0-99.0); MEAN PLATELET VOLUME 7.4 fl (7.4-10.4); PLATELET 340 x1000/uL (130-400)
[2020-11-17] MEDS: INSULIN LISPRO 100 UNITS/ML SUBCUT SCH ×4 (07:40→21:00)
[2020-11-17 08:00] VITALS: BP 134/62
[2020-11-17 08:19] LABS: CHLORIDE 103 mEq/L (98-107)
[2020-11-17] MEDS: FUROSEMIDE 40MG TABLET PO SCH (08:47)
[2020-11-17] MEDS: DOCUSATE SODIUM 100MG CAPSULE PO SCH ×2 (08:47→17:00)
[2020-11-17] MEDS: FAMOTIDINE 20MG/2ML VIAL IV SCH (08:47)
[2020-11-17] MEDS: METOPROLOL TARTRATE 25MG TABLET PO SCH ×2 (08:47→21:51)
[2020-11-17] MEDS: ENOXAPARIN 80MG/0.8ML SYR SUBCUT SCH ×2 (08:48→21:51)
[2020-11-17] MEDS: POLYVINYL ALCOHOL OPHTH DROPS 15ML BOTHEYE PRN (09:10)
[2020-11-17] MEDS: HYDROCODONE/ACETAMINOPHEN 10/325MG TABLET PO PRN (09:10)
[2020-11-17] MEDS ORDERED: CEFTRIAXONE 1 G PREMIX 50 ML IV SCH (10:30)
[2020-11-17] MEDS: CEFTRIAXONE 1,000 MG in DEXTROSE 5% WATER 50 ML IV SCH (12:37)
[2020-11-17 16:00] LABS: PLATELET ESTIMATE NORMAL
[2020-11-17 20:00] VITALS: BP 142/66
[2020-11-18] MEDS: INSULIN LISPRO 100 UNITS/ML SUBCUT SCH ×4 (06:00→20:55)
[2020-11-18] MEDS: BLOOD SUGAR DIAGNOSTIC STRIP TEST SCH ×4 (06:04→20:54)
[2020-11-18] MEDS: HYDROCODONE/ACETAMINOPHEN 5/325MG TABLET PO PRN (06:08)
[2020-11-18 07:52] VITALS: BP 138/79
[2020-11-18 09:05] LABS: BASOPHILS % 0.4 % (0.0-2.0); EOSINOPHILS % 0.6 % (0.0-5.0); HEMATOCRIT. 30.1 % (36.0-48.0); LYMPHOCYTES % 8.2 % (20.0-50.0); MEAN CORPUSCULAR HEMOGLOBIN 29.4 pg (28.0-32.0); MEAN CORPUSCULAR VOLUME 88.9 fL (81.0-99.0); MEAN PLATELET VOLUME 7.9 fl (7.4-10.4); MONOCYTES % 6.5 % (2.0-8.0); NEUTROPHILS % 84.3 % (40.0-76.0); PLATELET 349 x1000/uL (130-400); RED BLOOD CELL COUNT 3.39 mill/uL (4.2-5.4); RED CELL DISTRIBUTION WIDTH 15.4 % (11.6-14.6)
[2020-11-18] MEDS: METOPROLOL TARTRATE 25MG TABLET PO SCH ×2 (09:10→20:58)
[2020-11-18] MEDS: DOCUSATE SODIUM 100MG CAPSULE PO SCH ×2 (09:10→17:25)
[2020-11-18] MEDS: FUROSEMIDE 40MG TABLET PO SCH (09:10)
[2020-11-18] MEDS: HYDROCODONE/ACETAMINOPHEN 10/325MG TABLET PO PRN (09:11)
[2020-11-18] MEDS: ENOXAPARIN 80MG/0.8ML SYR SUBCUT SCH ×2 (09:12→20:59)
[2020-11-18] MEDS: FAMOTIDINE 20MG/2ML VIAL IV SCH (09:12)
[2020-11-18 09:16] LABS: CHLORIDE 101 mEq/L (98-107)
[2020-11-18] MEDS: CEFTRIAXONE 1,000 MG in DEXTROSE 5% WATER 50 ML IV SCH (12:17)
[2020-11-18] MEDS: SULFAMETHOXAZOLE/TRIMETHOPRIM 800/160MG TABLET PO SCH (17:49)
[2020-11-18 20:00] VITALS: BP 128/58
[2020-11-19] MEDS: HYDROCODONE/ACETAMINOPHEN 5/325MG TABLET PO PRN ×2 (01:52→20:33)
[2020-11-19] MEDS: CLONIDINE 0.1MG TABLET PO PRN (06:02)
[2020-11-19] MEDS: BLOOD SUGAR DIAGNOSTIC STRIP TEST SCH ×4 (06:05→20:24)
[2020-11-19] MEDS: INSULIN LISPRO 100 UNITS/ML SUBCUT SCH ×4 (06:05→20:30)
[2020-11-19 06:31] LABS: BASOPHILS % 0.7 % (0.0-2.0); EOSINOPHILS % 1.4 % (0.0-5.0); HEMATOCRIT. 29.8 % (36.0-48.0); HEMOGLOBIN. 10.1 g/dL (12.0-16.0); LYMPHOCYTES % 14.1 % (20.0-50.0); MEAN CORPUSCULAR HEMOGLOBIN 29.5 pg (28.0-32.0); MEAN CORPUSCULAR VOLUME 87.1 fL (81.0-99.0); MEAN PLATELET VOLUME 7.7 fl (7.4-10.4); MONOCYTES % 7.4 % (2.0-8.0); NEUTROPHILS % 76.4 % (40.0-76.0); PLATELET 340 x1000/uL (130-400); RED BLOOD CELL COUNT 3.42 mill/uL (4.2-5.4); RED CELL DISTRIBUTION WIDTH 15.5 % (11.6-14.6)
[2020-11-19 06:43] LABS: CHLORIDE 100 mEq/L (98-107)
[2020-11-19 08:00] VITALS: BP 121/66
[2020-11-19] MEDS: FUROSEMIDE 40MG TABLET PO SCH (08:45)
[2020-11-19] MEDS: SULFAMETHOXAZOLE/TRIMETHOPRIM 800/160MG TABLET PO SCH ×2 (08:45→20:12)
[2020-11-19] MEDS: FAMOTIDINE 20MG/2ML VIAL IV SCH (08:46)
[2020-11-19] MEDS: DOCUSATE SODIUM 100MG CAPSULE PO SCH ×2 (09:00→17:20)
[2020-11-19] MEDS: METOPROLOL TARTRATE 25MG TABLET PO SCH ×2 (09:07→20:13)
[2020-11-19] MEDS: ENOXAPARIN 80MG/0.8ML SYR SUBCUT SCH ×2 (09:08→20:24)
[2020-11-19 19:54] VITALS: BP 141/76
[2020-11-20] MEDS: BLOOD SUGAR DIAGNOSTIC STRIP TEST SCH ×4 (06:50→20:43)
[2020-11-20] MEDS: INSULIN LISPRO 100 UNITS/ML SUBCUT SCH ×4 (06:50→20:43)
[2020-11-20] MEDS: HYDROCODONE/ACETAMINOPHEN 5/325MG TABLET PO PRN (06:55)
[2020-11-20 08:16] VITALS: BP 137/79
[2020-11-20] MEDS: FAMOTIDINE 20MG/2ML VIAL IV SCH (08:43)
[2020-11-20] MEDS: FUROSEMIDE 40MG TABLET PO SCH (09:00)
[2020-11-20] MEDS: DOCUSATE SODIUM 100MG CAPSULE PO SCH ×2 (09:00→17:27)
[2020-11-20] MEDS: SULFAMETHOXAZOLE/TRIMETHOPRIM 800/160MG TABLET PO SCH ×2 (09:00→20:38)
[2020-11-20] MEDS: METOPROLOL TARTRATE 25MG TABLET PO SCH ×2 (09:02→20:38)
[2020-11-20] MEDS: ENOXAPARIN 80MG/0.8ML SYR SUBCUT SCH (09:03)
[2020-11-20] MEDS ORDERED: NALOXONE HCL 0.4MG/ML VIAL IV PRN (13:00)
[2020-11-20 20:00] VITALS: BP 119/71
[2020-11-21] MEDS: BLOOD SUGAR DIAGNOSTIC STRIP TEST SCH ×4 (06:29→21:18)
[2020-11-21] MEDS: INSULIN LISPRO 100 UNITS/ML SUBCUT SCH ×4 (06:29→21:00)
[2020-11-21 07:40] VITALS: BP 117/75
[2020-11-21 09:09] LABS: PROTHROMBIN TIME 10.7 sec (9.6-11.0)
[2020-11-21] MEDS: METOPROLOL TARTRATE 25MG TABLET PO SCH ×2 (09:30→21:18)
[2020-11-21] MEDS: SULFAMETHOXAZOLE/TRIMETHOPRIM 800/160MG TABLET PO SCH ×2 (09:30→21:18)
[2020-11-21] MEDS: FUROSEMIDE 40MG TABLET PO SCH (09:30)
[2020-11-21] MEDS: DOCUSATE SODIUM 100MG CAPSULE PO SCH ×2 (09:30→16:36)
[2020-11-21] MEDS: FAMOTIDINE 20MG/2ML VIAL IV SCH (09:31)
[2020-11-21 20:00] VITALS: BP 156/58
[2020-11-21] MEDS ORDERED: BISACODYL 5MG TABLET PO NR (21:30)
[2020-11-22] MEDS: BLOOD SUGAR DIAGNOSTIC STRIP TEST SCH ×4 (06:51→20:32)
[2020-11-22 07:00] LABS: BASOPHILS % 0.7 % (0.0-2.0); CHLORIDE 103 mEq/L (98-107); EOSINOPHILS % 0.6 % (0.0-5.0); HEMATOCRIT. 31.7 % (36.0-48.0); HEMOGLOBIN. 10.6 g/dL (12.0-16.0); LYMPHOCYTES % 8.9 % (20.0-50.0); MEAN CORPUSCULAR VOLUME 86.9 fL (81.0-99.0); MEAN PLATELET VOLUME 7.5 fl (7.4-10.4); MONOCYTES % 7.8 % (2.0-8.0); PLATELET 319 x1000/uL (130-400); RED BLOOD CELL COUNT 3.65 mill/uL (4.2-5.4); RED CELL DISTRIBUTION WIDTH 15.9 % (11.6-14.6)
[2020-11-22] MEDS: INSULIN LISPRO 100 UNITS/ML SUBCUT SCH ×4 (07:43→20:32)
[2020-11-22 08:18] VITALS: BP 133/61
[2020-11-22] MEDS: DOCUSATE SODIUM 100MG CAPSULE PO SCH ×2 (08:21→16:16)
[2020-11-22] MEDS: FUROSEMIDE 40MG TABLET PO SCH (08:21)
[2020-11-22] MEDS: METOPROLOL TARTRATE 25MG TABLET PO SCH ×2 (08:21→20:32)
[2020-11-22] MEDS: FAMOTIDINE 20MG TABLET PO SCH (08:21)
[2020-11-22] MEDS ORDERED: POTASSIUM CHLORIDE 20MEQ TABLET SR PO NR (11:30)
[2020-11-22 20:00] VITALS: BP 129/88
[2020-11-23] MEDS: HYDROCODONE/ACETAMINOPHEN 10/325MG TABLET PO PRN (03:14)
[2020-11-23] MEDS: INSULIN LISPRO 100 UNITS/ML SUBCUT SCH ×4 (05:50→21:00)
[2020-11-23] MEDS: BLOOD SUGAR DIAGNOSTIC STRIP TEST SCH ×4 (05:50→21:10)
[2020-11-23] MEDS: CLONIDINE 0.1MG TABLET PO PRN (05:55)
[2020-11-23 08:10] VITALS: BP 110/56
[2020-11-23] MEDS: FUROSEMIDE 40MG TABLET PO SCH (09:47)
[2020-11-23] MEDS: FAMOTIDINE 20MG TABLET PO SCH (09:47)
[2020-11-23] MEDS: POTASSIUM CHLORIDE 20MEQ TABLET SR PO SCH (09:47)
[2020-11-23] MEDS: DOCUSATE SODIUM 100MG CAPSULE PO SCH ×2 (09:47→17:41)
[2020-11-23] MEDS: METOPROLOL TARTRATE 25MG TABLET PO SCH ×2 (09:48→21:55)
[2020-11-23 20:00] VITALS: BP 114/51
[2020-11-23] MEDS: NYSTATIN POWDER 15GM TOP SCH (20:16)
[2020-11-24] MEDS: INSULIN LISPRO 100 UNITS/ML SUBCUT SCH ×4 (05:30→21:00)
[2020-11-24] MEDS: BLOOD SUGAR DIAGNOSTIC STRIP TEST SCH ×4 (05:30→21:30)
[2020-11-24] MEDS: NYSTATIN POWDER 15GM TOP SCH ×2 (06:08→21:55)
[2020-11-24 07:30] LABS: BASOPHILS % 0.7 % (0.0-2.0); EOSINOPHILS % 1.3 % (0.0-5.0); HEMATOCRIT. 31.7 % (36.0-48.0); HEMOGLOBIN. 10.4 g/dL (12.0-16.0); LYMPHOCYTES % 9.8 % (20.0-50.0); MEAN CORPUSCULAR VOLUME 88.1 fL (81.0-99.0); MEAN PLATELET VOLUME 7.9 fl (7.4-10.4); MONOCYTES % 8.6 % (2.0-8.0); NEUTROPHILS % 79.6 % (40.0-76.0); PLATELET 349 x1000/uL (130-400); RED CELL DISTRIBUTION WIDTH 15.6 % (11.6-14.6)
[2020-11-24 07:36] LABS: CHLORIDE 102 mEq/L (98-107)
[2020-11-24 07:44] VITALS: BP 154/53
[2020-11-24] MEDS: FUROSEMIDE 40MG TABLET PO SCH (08:18)
[2020-11-24] MEDS: FAMOTIDINE 20MG TABLET PO SCH (08:18)
[2020-11-24] MEDS: POTASSIUM CHLORIDE 20MEQ TABLET SR PO SCH (08:19)
[2020-11-24] MEDS: METOPROLOL TARTRATE 25MG TABLET PO SCH ×2 (08:19→21:28)
[2020-11-24] MEDS: DOCUSATE SODIUM 100MG CAPSULE PO SCH ×2 (08:19→17:09)
[2020-11-24] MEDS: HYDROCODONE/ACETAMINOPHEN 10/325MG TABLET PO PRN (08:20)
[2020-11-24 20:00] VITALS: BP 119/46
[2020-11-24] MEDS ORDERED: POLYETHYLENE GLYCOL 3350 (17GM) 1 DOSE PACK PO SCH (20:00)
[2020-11-24] MEDS: POLYETHYLENE GLYCOL 3350 (17GM) 1 DOSE PACK PO PRN (21:30)
[2020-11-25] MEDS: HYDROCODONE/ACETAMINOPHEN 5/325MG TABLET PO PRN ×2 (00:12→08:24)
[2020-11-25] MEDS: BLOOD SUGAR DIAGNOSTIC STRIP TEST SCH ×4 (05:47→20:18)
[2020-11-25] MEDS: NYSTATIN POWDER 15GM TOP SCH ×3 (06:04→22:04)
[2020-11-25 08:00] VITALS: BP 161/72
[2020-11-25] MEDS: INSULIN LISPRO 100 UNITS/ML SUBCUT SCH ×4 (09:00→20:18)
[2020-11-25] MEDS: FAMOTIDINE 20MG TABLET PO SCH (09:33)
[2020-11-25] MEDS: METOPROLOL TARTRATE 25MG TABLET PO SCH ×2 (09:33→22:01)
[2020-11-25] MEDS: FUROSEMIDE 40MG TABLET PO SCH (09:33)
[2020-11-25] MEDS: POTASSIUM CHLORIDE 20MEQ TABLET SR PO SCH (09:33)
[2020-11-25] MEDS: DOCUSATE SODIUM 100MG CAPSULE PO SCH ×2 (09:34→16:53)
[2020-11-25 20:00] VITALS: BP 133/67
[2020-11-25] MEDS: ENOXAPARIN 80MG/0.8ML SYR SUBCUT SCH (22:00)
[2020-11-26] MEDS ORDERED: NA PHOS,M-B/NA PHOS,DI-BA ENEMA 118ML PR ONE (04:15)
[2020-11-26] MEDS: INSULIN LISPRO 100 UNITS/ML SUBCUT SCH ×4 (06:15→20:47)
[2020-11-26] MEDS: BLOOD SUGAR DIAGNOSTIC STRIP TEST SCH ×4 (06:18→20:46)
[2020-11-26 08:00] VITALS: BP 157/70
[2020-11-26] MEDS: DOCUSATE SODIUM 100MG CAPSULE PO SCH ×2 (08:51→17:00)
[2020-11-26] MEDS: POTASSIUM CHLORIDE 20MEQ TABLET SR PO SCH (08:51)
[2020-11-26] MEDS: METOPROLOL TARTRATE 25MG TABLET PO SCH ×2 (08:52→20:49)
[2020-11-26] MEDS: FAMOTIDINE 20MG TABLET PO SCH (08:52)
[2020-11-26] MEDS: FUROSEMIDE 40MG TABLET PO SCH (08:52)
[2020-11-26] MEDS: ENOXAPARIN 80MG/0.8ML SYR SUBCUT SCH ×2 (08:53→20:48)
[2020-11-26] MEDS: IPRATROPIUM/ALBUTEROL 0.5-3(2.5)MG/3ML NEB HHN PRN (18:38)
[2020-11-26 20:00] VITALS: BP 119/59
[2020-11-26] MEDS: NYSTATIN POWDER 15GM TOP SCH (20:01)
[2020-11-27] MEDS: BLOOD SUGAR DIAGNOSTIC STRIP TEST SCH ×4 (06:11→20:52)
[2020-11-27] MEDS: NYSTATIN POWDER 15GM TOP SCH ×2 (06:11→19:11)
[2020-11-27 08:00] VITALS: BP 142/77
[2020-11-27] MEDS: INSULIN LISPRO 100 UNITS/ML SUBCUT SCH ×4 (09:00→20:55)
[2020-11-27] MEDS: DOCUSATE SODIUM 100MG CAPSULE PO SCH ×3 (09:00→18:30)
[2020-11-27] MEDS: FUROSEMIDE 40MG TABLET PO SCH (09:08)
[2020-11-27] MEDS: POTASSIUM CHLORIDE 20MEQ TABLET SR PO SCH (09:08)
[2020-11-27] MEDS: METOPROLOL TARTRATE 25MG TABLET PO SCH ×2 (09:08→20:51)
[2020-11-27] MEDS: FAMOTIDINE 20MG TABLET PO SCH (09:08)
[2020-11-27] MEDS: ENOXAPARIN 80MG/0.8ML SYR SUBCUT SCH ×2 (09:10→20:50)
[2020-11-27 13:00] LABS: BG BASE EXCESS 11.9 mmol/L (-2.0-2.0); BG CARBOXYHEMOGLOBIN 0.3 % (0.5-1.5); BG DEOXYHEMOGLOBIN 2.3 % (0.0-5.0); BG FRACTION INSPIRED OXYGEN 28; BG HCO3 ACT 36.5 mmol/L (22.0-26.0); BG METHEMOGLOBIN 0.4 % (0.0-1.5); BG OXYGEN SATURATION 97.7 % (92.0-98.5); BG PCO2 47.5 mmHg (35.0-45.0); BG PH 7.503 (7.350-7.450); BG PO2 97.7 mmHg (75.0-100.0); BG TOTAL HEMOGLOBIN 10.9 g/dL (12.0-18.0); BG VENT MODE NASAL CANNULA
[2020-11-27 20:00] VITALS: BP 92/56
[2020-11-27] MEDS: ACETAMINOPHEN 325MG TABLET PO PRN (20:51)
[2020-11-28] MEDS: BLOOD SUGAR DIAGNOSTIC STRIP TEST SCH ×4 (07:01→21:34)
[2020-11-28] MEDS: NYSTATIN POWDER 15GM TOP SCH ×3 (07:01→18:34)
[2020-11-28 08:00] VITALS: BP 139/81
[2020-11-28] MEDS: INSULIN LISPRO 100 UNITS/ML SUBCUT SCH ×4 (09:00→21:00)
[2020-11-28] MEDS: METOPROLOL TARTRATE 25MG TABLET PO SCH ×3 (09:49→21:25)
[2020-11-28] MEDS: FAMOTIDINE 20MG TABLET PO SCH (09:49)
[2020-11-28] MEDS: DOCUSATE SODIUM 100MG CAPSULE PO SCH ×2 (09:49→16:39)
[2020-11-28] MEDS: POTASSIUM CHLORIDE 20MEQ TABLET SR PO SCH (09:49)
[2020-11-28] MEDS: FUROSEMIDE 40MG TABLET PO SCH (09:49)
[2020-11-28] MEDS: ENOXAPARIN 80MG/0.8ML SYR SUBCUT SCH ×2 (09:50→21:23)
[2020-11-28 10:26] LABS: BASOPHILS % 0.3 % (0.0-2.0); EOSINOPHILS % 0.4 % (0.0-5.0); HEMATOCRIT. 31.4 % (36.0-48.0); HEMOGLOBIN. 10.6 g/dL (12.0-16.0); LYMPHOCYTES % 9.1 % (20.0-50.0); MEAN CORPUSCULAR HEMOGLOBIN 29.5 pg (28.0-32.0); MEAN CORPUSCULAR VOLUME 87.2 fL (81.0-99.0); MONOCYTES % 6.9 % (2.0-8.0); NEUTROPHILS % 83.3 % (40.0-76.0); PLATELET 485 x1000/uL (130-400); RED BLOOD CELL COUNT 3.61 mill/uL (4.2-5.4); RED CELL DISTRIBUTION WIDTH 15.6 % (11.6-14.6)
[2020-11-28 10:31] LABS: CHLORIDE 99 mEq/L (98-107)
[2020-11-28 20:00] VITALS: BP 156/81
[2020-11-29] MEDS: ACETAMINOPHEN 325MG TABLET PO PRN (00:11)
[2020-11-29] MEDS: BLOOD SUGAR DIAGNOSTIC STRIP TEST SCH ×4 (05:43→21:22)
[2020-11-29 08:51] VITALS: BP 119/83
[2020-11-29] MEDS: POTASSIUM CHLORIDE 20MEQ TABLET SR PO SCH (08:53)
[2020-11-29] MEDS: POLYETHYLENE GLYCOL 3350 (17GM) 1 DOSE PACK PO PRN (08:53)
[2020-11-29] MEDS: DOCUSATE SODIUM 100MG CAPSULE PO SCH ×2 (08:53→17:13)
[2020-11-29] MEDS: ENOXAPARIN 80MG/0.8ML SYR SUBCUT SCH ×2 (08:53→21:22)
[2020-11-29] MEDS: FAMOTIDINE 20MG TABLET PO SCH (08:53)
[2020-11-29] MEDS: FUROSEMIDE 40MG TABLET PO SCH (08:53)
[2020-11-29] MEDS: INSULIN LISPRO 100 UNITS/ML SUBCUT SCH ×4 (08:54→21:00)
[2020-11-29] MEDS: NYSTATIN POWDER 15GM TOP SCH (19:00)
[2020-11-29 20:00] VITALS: BP 144/75
[2020-11-29] MEDS: METOPROLOL TARTRATE 25MG TABLET PO SCH (21:21)
[2020-11-30] MEDS: INSULIN LISPRO 100 UNITS/ML SUBCUT SCH ×4 (06:17→21:00)
[2020-11-30] MEDS: BLOOD SUGAR DIAGNOSTIC STRIP TEST SCH ×4 (06:17→21:43)
[2020-11-30] MEDS: NYSTATIN POWDER 15GM TOP SCH ×2 (06:18→19:31)
[2020-11-30 07:56] VITALS: BP 129/66
[2020-11-30] MEDS: FUROSEMIDE 40MG TABLET PO SCH (08:59)
[2020-11-30] MEDS: DOCUSATE SODIUM 100MG CAPSULE PO SCH ×2 (08:59→16:43)
[2020-11-30] MEDS: ENOXAPARIN 80MG/0.8ML SYR SUBCUT SCH ×2 (08:59→20:37)
[2020-11-30] MEDS: FAMOTIDINE 20MG TABLET PO SCH (08:59)
[2020-11-30] MEDS: METOPROLOL TARTRATE 25MG TABLET PO SCH ×2 (08:59→20:37)
[2020-11-30] MEDS: POTASSIUM CHLORIDE 20MEQ TABLET SR PO SCH (08:59)
[2020-11-30 20:00] VITALS: BP 150/92
[2020-12-01] MEDS: BLOOD SUGAR DIAGNOSTIC STRIP TEST SCH ×4 (06:20→21:00)
[2020-12-01] MEDS: NYSTATIN POWDER 15GM TOP SCH (06:20)
[2020-12-01] MEDS: INSULIN LISPRO 100 UNITS/ML SUBCUT SCH ×4 (06:46→21:00)
[2020-12-01 08:00] VITALS: BP 157/82
[2020-12-01] MEDS: FUROSEMIDE 40MG TABLET PO SCH (08:25)
[2020-12-01] MEDS: ENOXAPARIN 80MG/0.8ML SYR SUBCUT SCH ×2 (08:25→21:00)
[2020-12-01] MEDS: POTASSIUM CHLORIDE 20MEQ TABLET SR PO SCH (08:25)
[2020-12-01] MEDS: DOCUSATE SODIUM 100MG CAPSULE PO SCH ×2 (08:26→17:31)
[2020-12-01] MEDS: FAMOTIDINE 20MG TABLET PO SCH (08:26)
[2020-12-01] MEDS: BISACODYL 5MG TABLET PO SCH (08:26)
[2020-12-01] MEDS: METOPROLOL TARTRATE 25MG TABLET PO SCH ×2 (08:28→20:58)
[2020-12-01] MEDS ORDERED: BENZONATATE 100MG CAPSULE PO PRN (15:00)
[2020-12-01 20:30] VITALS: BP 157/87
[2020-12-02] MEDS: ACETAMINOPHEN 325MG TABLET PO PRN ×3 (04:19→22:00)
[2020-12-02] MEDS: NYSTATIN POWDER 15GM TOP SCH ×2 (04:28→17:59)
[2020-12-02] MEDS: INSULIN LISPRO 100 UNITS/ML SUBCUT SCH ×4 (06:00→21:00)
[2020-12-02] MEDS: BLOOD SUGAR DIAGNOSTIC STRIP TEST SCH ×5 (06:08→21:07)
[2020-12-02 08:20] VITALS: BP 143/89
[2020-12-02] MEDS: BISACODYL 5MG TABLET PO SCH (09:00)
[2020-12-02] MEDS: POTASSIUM CHLORIDE 20MEQ TABLET SR PO SCH (09:01)
[2020-12-02] MEDS: ENOXAPARIN 80MG/0.8ML SYR SUBCUT SCH ×2 (09:01→21:01)
[2020-12-02] MEDS: FUROSEMIDE 40MG TABLET PO SCH (09:02)
[2020-12-02] MEDS: FAMOTIDINE 20MG TABLET PO SCH (09:02)
[2020-12-02] MEDS: DOCUSATE SODIUM 100MG CAPSULE PO SCH ×2 (09:02→17:59)
[2020-12-02] MEDS: METOPROLOL TARTRATE 25MG TABLET PO SCH ×2 (09:02→20:57)
[2020-12-02 20:00] VITALS: BP 143/95
[2020-12-02] MEDS ORDERED: METHYL SALICYLATE/MENTHOL CREAM 85GM TOP PRN (21:15)
[2020-12-02] MEDS ORDERED: HYDROCODONE/ACETAMINOPHEN 10/325MG TABLET PO PRN (23:15)
[2020-12-02] MEDS ORDERED: HYDROCODONE/ACETAMINOPHEN 5/325MG TABLET PO PRN (23:15)
[2020-12-02] MEDS ORDERED: NALOXONE HCL 0.4MG/ML VIAL IV PRN (23:30)
[2020-12-03] MEDS: NYSTATIN POWDER 15GM TOP SCH (06:07)
[2020-12-03] MEDS ORDERED: DOPAMINE 800 MG PREMIX 250 ML IV PRN (08:45)
[2020-12-03] MEDS ORDERED: NOREPINEPHRINE 32 MG in DEXT 5% WATER 218 ML IV PRN (09:00)
[2020-12-03 12:02] VITALS: BP 92/75
== END 2020-12-03 10:05 | disposition admitted as inpatient to this hospital (09) | DRG 551 ==
PROVIDERS: ADMIT Psychiatry & Neurology Neurology; ATTEND Internal Medicine
PROC: 0W9B30Z Drainage of Left Pleural Cavity with Drainage Device, Percutaneous Approach (ICD-10-PCS; principal; 2020-11-21)
DX: S12.500A Unspecified displaced fracture of sixth cervical vertebra, initial encounter for closed fracture (principal); G82.50 Quadriplegia, unspecified; C79.51 Secondary malignant neoplasm of bone; E46 Unspecified protein-calorie malnutrition; E87.1 Hypo-osmolality and hyponatremia; G95.89 Other specified diseases of spinal cord; J90 Pleural effusion, not elsewhere classified; W18.39XA Other fall on same level, initial encounter; Y93.89 Activity, other specified; Y92.89 Other specified places as the place of occurrence of the external cause; Y99.8 Other external cause status; E78.5 Hyperlipidemia, unspecified; E87.6 Hypokalemia; I10 Essential (primary) hypertension; M47.9 Spondylosis, unspecified; M48.061 Spinal stenosis, lumbar region without neurogenic claudication
CPT/HCPCS: 32555; 36415; 36600; 71045; 74177; 76700; 80048; 80053; 81003; 82105; 82375; 82378; 82805; 82962; 83036; 85025; 86301; 87077; 87186; 87426; 92523; 92610; 93970; 93971; 94640; 97110; 97112; 97116; 97162; 97166; 97530; 97535; A6261; J0696; J1650; J1815; J2310; J3490; J7040; J7060; J7121; L0172

== ENCOUNTER 2020-12-03 10:16 | Inpatient (IN) | payer MEDICARE, MEDICAID ==
[2020-12-03] VITALS (22 sets, daily range): BP systolic 27–108; BP diastolic 12–84
[~2020-12-03] VITALS: Ht 160 cm; Wt 68.0 kg
[2020-12-03] MEDS: DOPAMINE 400MG/250ML PREMIX 250 ML IV PRN ×2 (10:30→18:02)
[2020-12-03] MEDS: NOREPINEPHRINE 32 MG in DEXT 5% WATER 218 ML IV PRN ×2 (10:30→18:01)
[2020-12-03] MEDS: PHENYLEPHRINE 100 MG in DEXT 5% WATER 240 ML IV PRN ×2 (11:30→19:59)
[2020-12-03] MEDS: VASOPRESSIN 20 UNIT in SODIUM CHLORIDE 0.9% 99 ML IV PRN ×2 (11:40→18:42)
[2020-12-03] MEDS ORDERED: EPINEPHRINE 10 MG in SODIUM CHLORIDE 0.9% 240 ML IV PRN (12:30)
[2020-12-03] MEDS: EPINEPHRINE 10 MG in SODIUM CHLORIDE 0.9% 240 ML IV PRN ×4 (13:17→20:22)
[2020-12-03] MEDS ORDERED: AMIODARONE HCL 50MG/ML 3ML VIAL IV ONE (13:43)
[2020-12-03] MEDS ORDERED: DEXTROSE 50% WATER 50ML SYRINGE IV ONE (13:43)
[2020-12-03] MEDS ORDERED: MAGNESIUM SULFATE 4G IN WATER 100ML PREMIX IV ONE (13:43)
[2020-12-03] MEDS ORDERED: EPINEPHRINE 0.1MG/ML (1:10,000) 10ML SYR ONE (13:43)
[2020-12-03] MEDS ORDERED: CALCIUM CHLORIDE 1GM/10ML SYR IV ONE (13:43)
[2020-12-03] MEDS ORDERED: SODIUM BICARBONATE 8.4% 1 MEQ/ML 50ML SYR IV ONE (13:43)
[2020-12-03] MEDS ORDERED: ATROPINE SULFATE 1MG/10ML SYR ONE (13:43)
[2020-12-03] MEDS ORDERED: LIDOCAINE HCL 2% 5ML SYRINGE IV ONE (13:43)
[2020-12-03 13:56] LABS: BG BASE EXCESS -22.1 mmol/L (-2.0-2.0); BG CARBOXYHEMOGLOBIN 0.3 % (0.5-1.5); BG DEOXYHEMOGLOBIN 7.7 % (0.0-5.0); BG FRACTION INSPIRED OXYGEN 100; BG HCO3 ACT 6.6 mmol/L (22.0-26.0); BG METHEMOGLOBIN 0.6 % (0.0-1.5); BG OXYGEN SATURATION 92.2 % (92.0-98.5); BG OXYHEMOGLOBIN 91.4 % (94.0-97.0); BG PCO2 24.6 mmHg (35.0-45.0); BG PH 7.049 (7.350-7.450); BG PO2 100.3 mmHg (75.0-100.0); BG SAMPLE SITE RIGHT RADIAL; BG TOTAL HEMOGLOBIN 8.5 g/dL (12.0-18.0); BG VENT MODE VENT - AC
[2020-12-03] MEDS ORDERED: SODIUM BICARBONATE 8.4% 1 MEQ/ML 50ML SYR IV NR ×2 (14:30→18:15)
[2020-12-03 18:12] LABS: MEAN CORPUSCULAR HEMOGLOBIN 28.1 pg (28.0-32.0); MEAN CORPUSCULAR VOLUME 111.6 fL (81.0-99.0); PLATELET 275 x1000/uL (130-400); RED BLOOD CELL COUNT 2.15 mill/uL (4.2-5.4); RED CELL DISTRIBUTION WIDTH 17.4 % (11.6-14.6)
[2020-12-03 18:13] LABS: CHLORIDE 97 mEq/L (98-107)
[2020-12-03] MEDS ORDERED: INSULIN REGULAR (HUMULIN R) 300UNITS/3ML VIAL IV NR (18:51)
[2020-12-03] MEDS ORDERED: DEXTROSE 50% WATER 50ML SYRINGE IV NR (18:51)
[2020-12-03] MEDS ORDERED: CALCIUM GLUCONATE 1 GM IV NR (19:00)
[2020-12-03 19:28] LABS: NUCLEATED RED BLOOD CELLS 5 /100 WBC; PLATELET ESTIMATE NORMAL
[2020-12-03] MEDS ORDERED: SODIUM BICARBONATE 100 MEQ in DEXTROSE 5% WATER 1,000 ML IV SCH (19:30)
== END 2020-12-03 21:14 | DRG 208 ==
LOC: 5EST 10:16
PROVIDERS: ADMIT Internal Medicine; ATTEND Internal Medicine
PROC: 0BH17EZ Insertion of Endotracheal Airway into Trachea, Via Natural or Artificial Opening (ICD-10-PCS; principal; 2020-12-03)
PROC: 5A1935Z Respiratory Ventilation, Less than 24 Consecutive Hours (ICD-10-PCS; 2020-12-03)
PROC: 5A2204Z Restoration of Cardiac Rhythm, Single (ICD-10-PCS; 2020-12-03)
PROC: 5A12012 Performance of Cardiac Output, Single, Manual (ICD-10-PCS; 2020-12-03)
DX: J96.01 Acute respiratory failure with hypoxia (principal); G82.50 Quadriplegia, unspecified; G93.41 Metabolic encephalopathy; I47.2 Ventricular tachycardia; E46 Unspecified protein-calorie malnutrition; E87.1 Hypo-osmolality and hyponatremia; E87.2 Acidosis; I82.619 Acute embolism and thrombosis of superficial veins of unspecified upper extremity; J81.1 Chronic pulmonary edema; N39.0 Urinary tract infection, site not specified; D64.9 Anemia, unspecified; I49.01 Ventricular fibrillation; E78.5 Hyperlipidemia, unspecified; E87.6 Hypokalemia; I10 Essential (primary) hypertension; W18.30XA Fall on same level, unspecified, initial encounter; I46.9 Cardiac arrest, cause unspecified; S01.81XA Laceration without foreign body of other part of head, initial encounter; X58.XXXA Exposure to other specified factors, initial encounter; Y93.89 Activity, other specified; Y99.8 Other external cause status; Z85.028 Personal history of other malignant neoplasm of stomach; Z86.73 Personal history of transient ischemic attack (TIA), and cerebral infarction without residual deficits; Z95.828 Presence of other vascular implants and grafts; Y92.009 Unspecified place in unspecified non-institutional (private) residence as the place of occurrence of the external cause; Z79.899 Other long term (current) drug therapy; Z98.1 Arthrodesis status
CPT/HCPCS: 36415; 36600; 80053; 82375; 82805; 82962; 84484; 85025; 86850; 86900; 86920; J0282; J0461; J0610; J1265; J1815; J2370; J3475; J3490; J7050; J7060; J7070